=== PATIENT | female | born 2005 | race Caucasian/White ===

== ENCOUNTER 2025-03-28 19:36 | Emergency (ER) | payer MEDICAID ==
[~2025-03-28] VITALS: Ht 157.5 cm; Wt 65.3 kg
[2025-03-28 19:57] VITALS: BP 118/74; PULSE 103; O2SAT 99
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
--- NOTE | 2025-03-28 20:47 | RADIOLOGY REPORT ---
CLINICAL INDICATION: Shoulder Pain TECHNIQUE: 2 radiographic views of the left shoulder were obtained. Comparison: None FINDINGS/IMPRESSION: There is no evidence of acute fracture or dislocation. The visualized joint space is well maintained. The alignment is anatomical. There is no radiopaque foreign body.
--- NOTE | 2025-03-28 20:48 | RADIOLOGY REPORT ---
CLINICAL INDICATION: ELBOW PAIN TECHNIQUE: 3 radiographic views of the left elbow were obtained. Comparison: None FINDINGS/IMPRESSION: There is acute minimally displaced radial head fracture. Limited evaluation for elbow joint effusion given no true lateral view.
--- NOTE | 2025-03-28 20:48 | RADIOLOGY REPORT ---
CLINICAL INDICATION: KNEE PAIN TECHNIQUE: 4 radiographic views of the right knee were obtained. Comparison: None FINDINGS/IMPRESSION: There is no evidence of acute fracture or dislocation. The visualized joint space is well maintained. The alignment is anatomical. There is no radiopaque foreign body. Trace suprapatellar effusion.
--- NOTE | 2025-03-28 21:00 | RADIOLOGY REPORT ---
EXAM: DI WRIST, COMPLETE (3VW MIN) CLINICAL HISTORY: WRIST PAIN COMPARISON: None TECHNIQUE: DI WRIST, COMPLETE (3VW MIN) Findings/Impression: No definite acute displaced fracture. The soft tissues are unremarkable. If clinical symptoms persis t, repeat radiographs may be obtained in 10-14 days to better visualized a fracture line.
[2025-03-28] MEDS ORDERED: IBUP-864 PO (21:55)
[2025-03-28 22:06] VITALS: TEMP 98.5
[2025-03-28] MEDS: HYDROcodone/acetaminophen 10/325mg tab PO STA (22:12)
[2025-03-28 22:46] VITALS: RESP 16
== END 2025-03-29 02:18 | disposition home or self-care (01) ==
LOC: ER 19:38
DX: S52.122A Displaced fracture of head of left radius, initial encounter for closed fracture (principal); M25.561 Pain in right knee; M79.602 Pain in left arm; W05.2XXA Fall from non-moving motorized mobility scooter, initial encounter; Y93.19 Activity, other involving water and watercraft; Y92.89 Other specified places as the place of occurrence of the external cause; Y99.8 Other external cause status
CPT/HCPCS: 29105; 73030; 73080; 73110; 73564; 99284; A4565; A6446; A6449